=== PATIENT | female | born 1950 | race Caucasian/White ===

== ENCOUNTER 2019-11-03 15:21 | Emergency (ER) | payer OTHER, MEDICARE ==
[2019-11-03 16:24] LABS: Absolute Lymphocytes (CBC) 1.6 K/uL (0.7-4.9); Basophils % 1.2 % (0-1.3); Hematocrit 43.5 % (36.0-45.0); Lymphocytes % 24.3 % (15.3-44.8); MPV 10.8 fL (7.6-11.3); RBC Red Blood Cell Count 4.75 M/uL (3.86-4.86)
--- NOTE | 2019-11-03 16:25 | RAD REPORT ---
EXAM DESCRIPTION: CT - Head Brain Wo Cont - 11/03/2019 3:53 pm CLINICAL HISTORY: headache, elevated blood pressure COMPARISON: No comparisons TECHNIQUE: All CT scans are performed using dose optimization technique as appropriate and may inclu de automated exposure control or mA/KV adjustment according to patient size. FINDINGS: No intracranial hemorrhage, hydrocephalus or extra-axial fluid collection.No areas of brai n edema or evidence of midline shift. The paranasal sinuses and mastoids are clear. The calvarium is intact. IMPRESSION: No acute intracranial abnormality.
[2019-11-03 16:33] LABS: Protime INR 0.99
[2019-11-03 16:47] LABS: ALT/SGPT 23 U/L (12-78); AST/SGOT 23 U/L (15-37); Albumin 4.1 g/dL (3.4-5.0); Alkaline Phosphatase 151 U/L (45-117); BUN Blood Urea Nitrogen 10 mg/dL (7-18); Bicarbonate 26 mmol/L (21-32); Bilirubin Direct 0.1 mg/dL (0-0.2); Bilirubin Total 0.4 mg/dL (0.2-1.0); Glucose Level 93 mg/dL (74-106); Protein, Total 7.7 g/dL (6.4-8.2); Sodium Level 142 mmol/L (136-145)
[2019-11-03 16:48] LABS: Magnesium 2.4 mg/dL (1.8-2.4); NT PRO-BNP 278 pg/mL (<125); Troponin (Emerg Dept Use Only) < 0.02 ng/mL (0.0-0.045)
--- NOTE | 2019-11-03 17:17 | EDPHYS ---
Physician Documentation [facility] Name: Ana Kelley Age: 69 yrs Sex: Female : 1950 Arrival Date: 11/03/2019 Time: 15:24 Bed 7 Private MD: ED Physician Nik Chappell HPI: 11/02 15:42 This 69 yrs old Female presents to ER via Ambulatory with complaints of High [facility] Blood Pressure. 15:42 The patient has elevated blood pressure and discovered this at home, at a physician's m office. Onset: The symptoms/episode began/occurred today. Modifying factors: The symptoms are aggravated by. Associated signs and symptoms: Pertinent positives: ORTIZ, Pertinent negatives: chest pain, dizziness, dyspnea, lightheadedness, nausea, visual changes, vomiting, weakness. The patient has not experienced similar symptoms in the past. Historical: - Allergies: 15:32 Aspirin; aa5 - Home Meds: 15:32 propranolol 10 mg Oral tab twice a day [Active]; atorvastatin Oral [Active]; Magnesium aa5 Oxide Oral [Active]; - PMHx: 15:32 acid reflux; Gout; Hyperlipidemia; shingles; tremors; aa5 - PSHx: 15:32 Left hip; aa5 - Immunization history:: Flu vaccine is not up to date. - Social history:: Smoking status: Patient denies any tobacco usage or history of. ROS: 16:43 Constitutional: Negative for fever, chills, and weight loss, Cardiovascular: Negative jmm for chest pain, palpitations, and edema, Respiratory: Negative for shortness of breath, cough, wheezing, and pleuritic chest pain. 16:43 Neuro: Positive for headache. 16:43 All other systems are negative. Exam: 16:43 Constitutional: This is a well developed, well nourished patient who is awake, alert, jmm and in no acute distress. Head/Face: atraumatic. Eyes: EOMI, no conjunctival erythema appreciated ENT: Moist Mucus Membranes Neck: Trachea midline, Supple Chest/axilla: Normal chest wall appearance and motion. Cardiovascular: Regular rate and rhythm. No edema appreciated Respiratory: Normal respirations, no respiratory distress appreciated Abdomen/GI: Non distended, soft Back: Normal ROM Skin: General appearance color normal MS/ Extremity: Moves all extremities, no obvious deformities appreciated, no edema noted to the lower extremities Neuro: Awake and alert, normal gait Psych: Behavior is normal, Mood is normal, Patient is cooperative and pleasant 17:15 ECG was reviewed by the Attending Physician. [facility] Vital Signs: 15:31 BP 200 / 92; Pulse 61; Resp 16 S; Temp 97.8(TE); Pulse Ox 97% on R/A; aa5 16:13 BP 147 / 71; Pulse 59; Resp 16 S; Pulse Ox 100% on R/A; Pain 0/10; jl7 MDM: 15:42 Patient medically screened. [facility] 17:11 Data reviewed: vital signs, nurses notes. Counseling: I had a detailed discussion with [facility] the patient and/or guardian regarding: the historical points, exam findings, and any diagnostic results supporting the discharge/admit diagnosis, lab results, radiology results, the need for outpatient follow up, to return to the emergency department if symptoms worsen or persist or if there are any questions or concerns that arise at home. ED course: BP has decreased spontaneously. Patient is now asymptomatic. Patient is advised to follow up with pcp for bp management. patient is otherwise given strict return precautions. Patient understood and agrees with the plan of care. . 11/02 15:43 Order name: Basic Metabolic Panel; Complete Time: 17:01 [facility] 11/02 15:43 Order name: CBC with Diff; Complete Time: 16:32 [facility] 11/02 15:43 Order name: LFT's; Complete Time: 17:01 [facility] 11/02 15:43 Order name: Magnesium; Complete Time: 17:01 [facility] 11/02 15:43 Order name: NT PRO-BNP; Complete Time: 17:01 [facility] 11/02 15:43 Order name: PT-INR; Complete Time: 16:35 [facility] 11/02 15:43 Order name: Troponin (emerg Dept Use Only); Complete Time: 17:01 [facility] 11/02 15:43 Order name: EKG; Complete Time: 15:44 [facility] 11/02 15:43 Order name: Cardiac monitoring; Complete Time: 16:16 [facility] 11/02 15:43 Order name: EKG - Nurse/Tech [facility] 11/02 15:43 Order name: IV Saline Lock; Complete Time: 16:16 [facility] 11/02 15:43 Order name: Labs collected and sent; Complete Time: 16:16 [facility] 11/02 15:43 Order name: CT Head Brain wo Cont; Complete Time: 16:32 [facility] 11/02 15:43 Order name: O2 Per Protocol; Complete Time: 16:16 [facility] 11/02 15:43 Order name: O2 Sat Monitoring; Complete Time: 16:16 [facility] EC:15 Rate is 52 beats/min. Rhythm is regular. QRS [place] is Normal. MO interval is normal. QRS jmm interval is normal. QT interval is normal. No Q waves. T waves are Normal. No ST changes noted. Reviewed by me. Administered Medications: No medications were administered Disposition: 11/03 09:47 Co-signature as Attending Physician, Nik Chappell MD I agree with the assessment and kdr plan of care. Disposition: 11/03/19 17:16 Discharged to Home. Impression: Elevated blood-pressure reading, without diagnosis of hypertension. - Condition is Stable. - Discharge Instructions: Hypertension, DASH Eating Plan, Managing Your Hypertension. - Medication Reconciliation Form, Thank You Letter, Antibiotic Education, Prescription Opioid Use form. - Follow up: Private Physician; When: 2 - 3 days; Reason: Recheck today's complaints, Continuance of care, Re-evaluation by your physician. Signatures: Dispatcher [employer] EDMS Nik Chappell MD MD kdr Mickail, Joel, PA PA jmm Calderon, Audri, RN RN aa5 Emiliana Ames RN RN ls4 Corrections: (The following items were deleted from the chart) 11/02 18:02 17:16 11/03/2019 17:16 Discharged to Home. Impression: Elevated blood-pressure reading, ls4 without diagnosis of hypertension. Condition is Stable. Forms are Medication Reconciliation Form, Thank You Letter, Antibiotic Education, Prescription Opioid Use. Follow up: Private Physician; When: 2 - 3 days; Reason: Recheck today's complaints, Continuance of care, Re-evaluation by your physician. [facility]
--- NOTE | 2019-11-03 17:17 | ER ---
Nurse's Notes [facility] Name: Ana Kelley Age: 69 yrs Sex: Female : 1950 Arrival Date: 11/03/2019 Time: 15:24 Bed 7 Private MD: Diagnosis: Elevated blood-pressure reading, without diagnosis of hypertension Presentation: 11/02 15:28 Chief complaint: Patient states: "my blood pressure is high today, the highest today aa5 was 203/115". Pt denies hx of HTN, pt states "I take propanolol but it's not for blood pressure it's for my tremors". Pt only c/o headache. Coronavirus screen: Proceed with normal triage. Ebola Screen: Patient negative for fever greater than or equal to 101.5 degrees Fahrenheit, and additional compatible Ebola Virus Disease symptoms. Initial Sepsis Screen: Does the patient meet any 2 criteria? No. Patient's initial sepsis screen is negative. Does the patient have a suspected source of infection? No. Patient's initial sepsis screen is negative. 15:28 Method Of Arrival: Ambulatory aa5 15:28 Acuity: SUNG 2 aa5 15:28 Risk Assessment: Do you want to hurt yourself or someone else? Patient reports no aa5 desire to harm self or others. Onset of symptoms was October 2019. Historical: - Allergies: 15:32 Aspirin; aa5 - Home Meds: 15:32 propranolol 10 mg Oral tab twice a day [Active]; atorvastatin Oral [Active]; Magnesium aa5 Oxide Oral [Active]; - PMHx: 15:32 acid reflux; Gout; Hyperlipidemia; shingles; tremors; aa5 - PSHx: 15:32 Left hip; aa5 - Immunization history:: Flu vaccine is not up to date. - Social history:: Smoking status: Patient denies any tobacco usage or history of. Screenin:00 Abuse screen: Denies threats or abuse. Denies injuries from another. Nutritional jl7 screening: No deficits noted. Tuberculosis screening: No symptoms or risk factors identified. Fall Risk IV access (20 points). Total Harper Fall Scale indicates No Risk (0-24 pts). Assessment: 16:00 General: Appears in no apparent distress. uncomfortable, Behavior is calm, cooperative, jl7 appropriate for age. Pain: Denies pain. Neuro: Level of Consciousness is awake, alert, obeys commands, Oriented to person, place, time, situation. Cardiovascular: Denies chest pain, Patient's skin is warm and dry. Respiratory: Airway is patent Respiratory effort is even, unlabored, Respiratory pattern is regular, symmetrical, Denies cough, shortness of breath. Derm: Skin is pink, warm \\T\\ dry. Vital Signs: 15:31 BP 200 / 92; Pulse 61; Resp 16 S; Temp 97.8(TE); Pulse Ox 97% on R/A; aa5 16:13 BP 147 / 71; Pulse 59; Resp 16 S; Pulse Ox 100% on R/A; Pain 0/10; jl7 ED Course: 15:24 Patient arrived in ED. as 15:28 Arm band placed on. aa5 15:30 Triage completed. aa5 15:34 Sebastien Randall PA is PHCP. [facility] 15:34 Nik Chappell MD is Attending Physician. [facility] 15:38 Ivy Meza RN is Primary Nurse. jl7 15:55 CT Head Brain wo Cont In Process Unspecified. EDMS 16:00 Patient has correct armband on for positive identification. Placed in gown. Bed in low jl7 position. Call light in reach. Side rails up X 1. potline monitor on. Pulse ox on. NIBP on. 16:05 Initial lab(s) drawn, by ma, sent to lab. Inserted saline lock: 20 gauge in right jl7 wrist, using aseptic technique. Blood collected. 16:05 IV discontinued, intact, bleeding controlled, No redness/swelling at site. Pressure jl7 dressing applied, pt c/o pain at IV site, IV removed. 16:41 EKG done. jl7 17:30 No provider procedures requiring assistance completed. ls4 Administered Medications: No medications were administered Outcome: 17:16 Discharge ordered by . philomena 18:01 Discharged to home ambulatory. ls4 18:01 Condition: good 18:01 Discharge instructions given to patient, Instructed on discharge instructions, follow up and referral plans. medication usage, safety practices, Demonstrated understanding of instructions, follow-up care, medications. 18:02 Patient left the ED. ls4 Signatures: Dispatcher [employer] EDMS Sebastien Randall PA PA jmm Martinez, Amelia as Calderon, Kiera, RN RN aa5 Ivy Meza, RN RN jl7 Emiliana Ames RN RN ls4
[2019-11-03 18:08] VITALS: TEMP 97.8
[2019-11-03 18:10] VITALS: BP 147/71; O2SAT 100
--- NOTE | 2019-11-04 07:36 | EKG ---
Test Date: 2019-11-03 Test Time: 16:37:27 Giver: BARB MEASUREMENT RESULTS: Intervals: Rate: 52 TX: 156 QRSD: 80 QT: 444 QTc: 412 [place]: P: 29 TX: 156 QRS: -2 T: 31 INTERPRETIVE STATEMENTS: Sinus bradycardia Otherwise normal ECG Compared to ECG 03/27/2017 12:27:29 Sinus rhythm no longer present Electronically Signed On 11-04-19 07:34:47 CDT by Bobo Rizo
== END 2019-11-03 18:02 | disposition home or self-care (01) ==
LOC: ER 15:21
DX: R03.0 Elevated blood-pressure reading, without diagnosis of hypertension (principal); E78.5 Hyperlipidemia, unspecified; Z88.6 Allergy status to analgesic agent
CPT/HCPCS: 36415; 70450; 80048; 80076; 83735; 83880; 84484; 85025; 85610; 93005; 99284